=== PATIENT | female | born 1995 ===

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

== ENCOUNTER 2018-04-28 17:09 | Emergency (ER) | payer SELFPAY ==
[2018-04-28 17:30] VITALS: BP 93/65; PULSE 83; RESP 16; TEMP 98.7; O2SAT 100
--- NOTE | 2018-04-28 17:49 | ED PDOC ---
HPI: Back Time Seen by Provider: 04/28/18 17:32 Chief Complaint (Nursing): Back Pain Chief Complaint (Provider): Back Pain History Per: Patient History/Exam Limitations: no limitations Onset/Duration Of Symptoms: Days (x2-3 weeks) Current Symptoms Are (Timing): Still Present Additional Complaint(s): 23 year old female presents to the ED for evaluation of atraumatic non-radiating neck and lower back pain for the past 2-3 weeks. She reports that she has been taking Tylenol with some relief, last dose three days ago, and notes that she also feels temporary pain relief when she "cracks" her back. Otherwise, denies fever, chills, hematuria, dysuria, incontinence, chest pain, abdominal pain, nausea, and vomiting. PMD: Mark Ramsay Past Medical History Reviewed: Historical Data, Nursing Documentation, Vital Signs Vital Signs: Last Vital Signs Temp 98.7 F 04/28/18 17:28 Pulse 83 04/28/18 17:28 Resp 16 04/28/18 17:28 BP 93/65 L 04/28/18 17:28 Pulse Ox 100 04/28/18 17:28 - Medical History PMH: No Chronic Diseases Denies: HIV, Chronic Kidney Disease - Surgical History Surgical History: No Surg Hx - Family History Family History: States: Unknown Family Hx - Home Medications Home Medications: Ambulatory Orders Medication Instructions Recorded Cyclobenzaprine [Cyclobenzaprine 10 mg PO Q8 PRN #10 tab 04/28/18 HCl] Nitrofurantoin Macrocrystals 100 mg PO BID #14 cap 04/28/18 [Macrobid] RX: Naproxen [Naprosyn] 500 mg PO BID PRN #10 tab 04/28/18 - Allergies Allergies/Adverse Reactions: Allergies Allergy/AdvReac Type Severity Reaction Status Date / Time No Known Allergies Allergy Verified 04/28/18 17:28 Review of Systems ROS Statement: Except As Marked, All Systems Reviewed And Found Negative Constitutional: Negative for: Fever, Chills Cardiovascular: Negative for: Chest Pain Gastrointestinal: Negative for: Nausea, Vomiting, Abdominal Pain Genitourinary Female: Negative for: Dysuria, Incontinence, Hematuria Musculoskeletal: Positive for: Neck Pain (atraumatic non-radiating), Back Pain (atraumatic non-radiating lower) Physical Exam - Reviewed Nursing Documentation Reviewed: Yes Vital Signs Reviewed: Yes - Physical Exam Appears: Positive for: No Acute Distress Gastrointestinal/Abdominal: Positive for: Normal Exam, Soft. Negative for: Tenderness Back: Positive for: Normal Inspection, Muscle Spasm (to bilateral trapezius muscles and bilateral paralumbar muscles). Negative for: L CVA Tenderness, R CVA Tenderness, Vertebral Tenderness (throughout entire spine) Extremity: Positive for: Normal ROM (all extremities), Other (equal dental prosthetist strength bilateral upper extremities; bilateral lower extremities 5/5 strength) Neurologic/Psych: Positive for: Alert, Oriented (x3) - ECG O2 Sat by Pulse Oximetry: 100 (RA) Pulse Ox Interpretation: Normal Medical Decision Making Medical Decision Making: Time: 1739 Initial Impression: back pain Initial Plan: --U-preg --Flexeril 10mg PO --Tylenol 650mg PO --Urinalysis 1944 Urine C&S ordered. On re-evaluation, pt. reports good pain relief. Gait steady, unassisted. Advised to f/u with [facility] for further evaluation but is to return to ED immediately if symptoms worsen. ----- Scribe Attestation: Documented by Morena Norris, acting as a scribe for Thomas Noe PA-C. Provider Scribe Attestation: All medical record entries made by the Scribe were at my direction and personally dictated by me. I have reviewed the chart and agree that the record accurately reflects my personal performance of the history, physical exam, medical decision making, and the department course for this patient. I have also personally directed, reviewed, and agree with the discharge instructions and di sposition. Disposition - Clinical Impression Clinical Impression: Low back pain, Neck pain, UTI (urinary tract infection) - Patient ED Disposition Is Patient to be Admitted: No - Disposition Referrals: [facility] [Outside] Disposition: Routine/Home Disposition Time: 19:45 Condition: IMPROVED Additional Instructions: FOLLOW UP WITH PMD FOR FURTHER EVALUATION RETURN TO ED IMMEDIATELY IF SYMPTOMS WORSEN KAYLEENKeya MERRILL, thank you for letting us take care of you today. Your provider was Homar Keyes MD and you were treated for BACK PAIN. The emergency medical care you received today was directed at your acute symptoms. If you were prescribed any medication, please fill it and take as directed. It may take several days for your symptoms to resolve. Return to the Emergency Department if your symptoms worsen, do not improve, or if you have any other problems. Please contact your doctor or call one of the physicians/clinics you have been referred to that are listed on the Patient Visit Information form that is included in your discharge packet. Bring any paperwork you were given at discharge with you along with any medications you are taking to your follow up visit. Our treatment cannot replace ongoing medical care by a primary care provider outside of the emergency department. Thank you for allowing the [facility] team to be part of your care today. If you had an X-Ray or CT scan: A Radiologist will review the ED reading if any change in treatment is needed we will contact you. If you had a blood, urine, or wound culture: It will take several days for the results, if any change in treatment is needed we will contact you. If you had an STI test: It will take 48 hours for the results. Please call after 1 week if you have not heard back. Prescriptions: Cyclobenzaprine [Cyclobenzaprine HCl] 10 mg PO Q8 PRN #10 tab PRN Reason: Muscle Spasm RX: Naproxen [Naprosyn] 500 mg PO BID PRN #10 tab PRN Reason: Pain Nitrofurantoin Macrocrystals [Macrobid] 100 mg PO BID #14 cap Instructions: Low Back Pain (DC), Urinary Tract Infection, Adult (DC), Generalized Neck Pain (DC) Forms: [employer] (Romansh) Print Language: PRYDEINIG
[2018-04-28 18:41] LABS: SQUAMOUS EPITHIAL 4 /hpf (0-5); URINE BACTERIA RARE (<OCC); URINE BILIRUBIN NEGATIVE (NEGATIVE); URINE BLOOD NEGATIVE (NEGATIVE); URINE CLARITY SLIGHTY-CLOUDY (Clear); URINE COLOR YELLOW (YELLOW); URINE GLUCOSE (UA) NEG (NEGATIVE); URINE LEUKOCYTE ESTERASE TRACE Leu/uL (Negative); URINE PROTEIN NEGATIVE (NEGATIVE); URINE UROBILINOGEN 0.2-1.0 mg/dL (0.2-1.0)
--- NOTE | 2018-04-29 10:50 | RAD ---
Date of service: 04/28/2018 PROCEDURE: Cervical Spine Radiographs. HISTORY: Pain. COMPARISON: None available. FINDINGS: BONES: Alignment maintained. No fracture. Dens Intact. DISC SPACES: Normal. SOFT TISSUES: Normal. No prevertebral soft tissue swelling. OTHER FINDINGS: None. IMPRESSION: Normal cervical spine radiographs
--- NOTE | 2018-04-29 10:51 | RAD ---
Date of service: 04/28/2018 PROCEDURE: Radiographs of the Lumbar Spine. HISTORY: pain COMPARISON: No prior. FINDINGS: BONES: Normal alignment. No listhesis. No fracture. DISC SPACES: Unremarkable. OTHER FINDINGS: None. IMPRESSION: Unremarkable radiographs of the lumbar spine.
== END 2018-04-28 20:57 | disposition home or self-care (01) ==
LOC: H.ER 17:09
DX: M54.5 Low back pain (principal); M54.2 Cervicalgia; N39.0 Urinary tract infection, site not specified